=== PATIENT | male | born 1990 | race Caucasian/White ===

== ENCOUNTER → 2018-11-17 | Outpatient (CLI) | payer OTHER ==
[~2018-11-17] MED LIST: NONE PER PT
== END | disposition home or self-care (01) ==
LOC: STAR 15:53
PROVIDERS: ATTEND Surgery
DX: Z02.9 Encounter for administrative examinations, unspecified (principal)

== ENCOUNTER 2018-11-20 11:05 | Day surgery (SDC) | payer OTHER ==
[2018-11-17 16:26] VITALS: BP 123/80
[~2018-11-20] VITALS: Ht 185.4 cm; Wt 93.3 kg
[2018-11-20] MEDS ORDERED: LACTATED RINGERS 1,000 ML IV SCH ×2 (11:33→16:00)
[2018-11-20] MEDS ORDERED: BUPIVACAINE/PF-EPI 0.5% 1:200K ONE (13:11)
[2018-11-20] MEDS ORDERED: MIDAZOLAM 1 MG/ML, 2ML ONE (13:38)
[2018-11-20] MEDS ORDERED: FENTANYL PF 100 MCG/2ML ONE (13:38)
[2018-11-20] MEDS ORDERED: ONDANSETRON 2MG/ML, 2ML ONE (13:39)
[2018-11-20] MEDS ORDERED: CEFAZOLIN 1,000 MG ONE (13:39)
[2018-11-20] MEDS ORDERED: DEXAMETHASONE 4 MG/ML, 1ML ONE (13:39)
[2018-11-20] MEDS ORDERED: PROPOFOL 10 MG/ML, 20ML ONE (13:39)
[2018-11-20] MEDS ORDERED: PROMETHAZINE 25 MG/ML, 1ML IV PRN (14:30)
[2018-11-20] MEDS ORDERED: MEPERIDINE/PF 25MG/0.5ML IVPush PRN (14:30)
[2018-11-20] MEDS ORDERED: KETOROLAC 30 MG/1 ML IV PRN (14:30)
[2018-11-20] MEDS ORDERED: ACETAMINOPHEN 325 MG TABLET PO PRN (14:30)
[2018-11-20] MEDS ORDERED: FENTANYL PF 100 MCG/2ML IV PRN (14:30)
[2018-11-20] MEDS ORDERED: LABETALOL 5MG/ML, 20ML IV PRN (14:30)
[2018-11-20] MEDS ORDERED: HYDROmorphone 2 MG/ML, 1ML IVPush PRN (14:30)
[2018-11-20] MEDS ORDERED: ALBUTEROL SULFATE 2.5 MG/3 ML NPPB PRN (14:30)
[2018-11-20] MEDS ORDERED: OXYcodone 5 MG/5 ML ORAL.SOL UDC PO PRN (14:30)
[2018-11-20] MEDS ORDERED: DIAZEPAM 5 MG/ML, 2ML IVPush PRN (14:30)
[2018-11-20] MEDS ORDERED: hydrALAzine 20 MG/ML, 1ML IV PRN (14:30)
[2018-11-20] MEDS ORDERED: MEPERIDINE/PF 50 MG/ML ONE (14:33)
[2018-11-20] MEDS ORDERED: ONDANSETRON 2MG/ML, 2ML IVPush PRN (15:00)
[2018-11-20] MEDS ORDERED: morphine SULFATE 10 MG/ML, 1ML IVPush PRN (15:00)
[2018-11-20] MEDS ORDERED: ACETAMINOPHEN 650 MG/20.3 ML UDC ONE (15:05)
[2018-11-20] MEDS ORDERED: OXYcodone 5 MG/5 ML ORAL.SOL UDC ONE (15:05)
[2018-11-20] MEDS ORDERED: MEPERIDINE/PF 25MG/ML,1ML ONE (15:10)
== END 2018-11-20 16:30 | disposition home or self-care (01) ==
LOC: OUT 11:05
PROVIDERS: ATTEND Surgery
DX: K40.90 Unilateral inguinal hernia, without obstruction or gangrene, not specified as recurrent (principal); Z98.890 Other specified postprocedural states
CPT/HCPCS: 49505; C1781; J0690; J1100; J2175; J2250; J2405; J2704; J3010; J7120